=== PATIENT | male | born 1955 | race African-American/Black ===

== ENCOUNTER 2019-04-17 09:31 | Inpatient (IN) | payer OTHER | END 2019-04-19 08:44 | disposition short-term general hospital (02) | LOC: JER 09:31 → JERBED 12:12 → J4W 20:33 ==

== ENCOUNTER 2020-06-05 07:51 | Inpatient (IN) | payer OTHER ==
[2020-06-05] MEDS ORDERED: methylPREDNISolone NA SUCC 125 MG/2 ML VIAL ONE (07:57)
[2020-06-05] MEDS ORDERED: methylPREDNISolone NA SUCC 125 MG/2 ML VIAL IVPB ONE (08:04)
--- NOTE | 2020-06-05 08:09 | PDOC ---
History of Present Illness - General Chief Complaint: Tongue Swelling Stated Complaint: TONGUE SWOLLEN Time Seen by Provider: 06/05/20 08:02 History Source: Patient Exam Limitations: No Limitations - History of Present Illness Initial Comments: 06/05/20 08:08 Vlad Nowak is a 65M with PMH ACS s/p 4x stenting, metastatic colon CA s/p resection, L femoral arterial bypass, HTN, HLD, NIDDM, presenting here with second time swelling of the tongue. This morning patient awoke with severe swelling of the tongue that prevents him from speaking clearly, but denies any difficulty with breathing. Denies prodromal symptoms, F/C, N/V/C/D, chest pain, SOB, abd pain, urinary sx, diarrhe a. Had one episode of this 3 weeks ago, likely 2/2 Ramipril usage, has been taking for 15 years but has not discontinued use after first episode of angioedema. Currently has tongue swelling and difficulty speaking but otherwise says he is feeling fine. Allergy to PCN, unknown reaction, but takes daily amoxicillin for 1 year without reaction after skin graft. Non-smoking for last 6 years. Denies alcohol/drug use. PSH includes cholecystectomy, colon resection, femoral bypass with skin grafting Past History - Medical History Allergies/Adverse Reactions: Allergies Allergy/AdvReac Type Severity Reaction Status Date / Time Penicillins Allergy Unknown Verified 04/17/19 09:34 Home Medications: Ambulatory Orders Amlodipine Besylate [Norvasc -] 10 mg PO DAILY 05/29/12 metFORMIN HCL [Glucophage] 1,000 mg PO BID 01/03/13 Aspirin [ASA -] 81 mg PO DAILY 11/27/13 Atorvastatin Ca [Lipitor] 40 mg PO HS 11/27/13 Carvedilol [Coreg -] 12.5 mg PO BID 11/27/13 Ramipril 10 mg PO BID 11/27/13 Sennosides [Senna] 8.6 mg PO DAILY PRN 11/27/13 Sitagliptin Phosphate [Januvia] 100 mg PO DAILY 11/27/13 Dicloxacillin Sodium 500 mg PO BID 06/05/20 Ergocalciferol [Vitamin D2] 50,000 unit PO MONTHLY 06/05/20 Pregabalin [Lyrica] 200 mg PO BID 06/05/20 Regorafenib [Stivarga] 40 mg PO DAILY 06/05/20 COPD: No Diabetes: Yes HTN: Yes Hypercholesterolemia: Yes - Psycho-Social/Smoking History Smoking Status: Yes Smoking History: Current every day smoker Number of Cigarettes Smoked Daily: 40 'Breaking Loose' booklet given: 04/17/19 Review of Systems - Review of Systems Able to Perform ROS?: Yes Constitutional: No: Symptoms Reported HEENTM: Yes: Mouth Swelling Respiratory: No: Cough, Orthopnea, Shortness of Breath, SOB at Rest, Stridor, Wheezing Cardiac (ROS): No: Chest Pain, Edema, Irregular Heart Rate, Lightheadedness, Palpitations, Syncope ABD/GI: No: Constipated, Diarrhea, Nausea, Poor Appetite, Poor Fluid Intake, Vomiting : No: Symptoms Reported Musculoskeletal: No: Symptoms Reported Integumentary: No: Symptoms Reported Neurological: No: Symptoms reported Endocrine: No: Symptoms Reported All Other Systems: Reviewed and Negative *Physical Exam - Physical Exam General Appearance: Yes: Nourished, Appropriately Dressed, Obese, Other (resting comfortably in bed, breathing without issues, speaking in full sentences, talking on the phone) HEENT: positive: EOMI, ANTHONY, Symmetrical, Muffled/Hoarse voice, Other (diffusely enlarged tongue with R>L swelling, completely unable to visualize back of throat, no stridor noted, non-tender). negative: Normal ENT Inspection, Normal Voice, Scleral Icterus (R), Scleral Icterus (L) Neck: positive: Trachea midline, Normal Thyroid, Supple. negative: Tender, Rigid, Lymphadenopathy (R), Lymphadenopathy (L), Tender lateral, Tender midline Respiratory/Chest: positive: Lungs Clear, Normal Breath Sounds. negative: Chest Tender, Respiratory Distress, Accessory Muscle Use, Labored Respiration, Crackles, Rales, Rhonchi, Stridor, Wheezing Cardiovascular: positive: Regular Rhythm, Regular Rate. negative: Murmur Gastrointestinal/Abdominal: positive: Normal Bowel Sounds, Flat, Soft. negative: Tender, Organomegaly, Guarding, Rebound, Hernia Musculoskeletal: positive: Normal Inspection. negative: CVA Tenderness, Decreased Range of Motion Extremity: positive: Normal Capillary Refill, Normal Inspection, Normal Range of Motion. negative: Tender, Cyanosis, Swelling, Calf Tenderness, Erythema Integumentary: positive: Normal Color, Dry, Warm Neurologic: positive: Fully Oriented, Alert, Normal Mood/Affect, Normal Response ED Treatment Course - LABORATORY CBC & Chemistry Diagram: 06/05/20 08:10 06/05/20 08:10 - RADIOLOGY Radiology Studies Ordered: Category Date Time Status CHEST X-RAY PORTABLE* [RAD] Stat Radiology 06/05/20 08:03 Ordered - Medications Given in the ED: ED Medications Discontinued Medications Generic Name Dose Route Start Last Admin Trade Name Freq PRN Reason Stop Dose Admin Methylprednisolone Sodium Succinate 125 mg 06/05/20 08:04 06/05/20 08:05 Solu-Medrol - IVPB 06/05/20 08:05 125 mg ONCE ONE Administration Medical Decision Making - Medical Decision Making 06/05/20 08:35 Patient has PMH HTN, HLD, DM, ACS s/p stenting, colon CA, ? PCN allergy on chronic amoxicillin, now here for angioedema of the mouth likely 2/2 ramipril use. Patient has severe tongue swelling but is not having any airway compromise at this time. Keeping close on on patient airway status, on tele monitor. Anesthesia notified about possible awake endoscopic intubation if it becomes necessary. Otherwise VSS and in NAD. Given Solu-Medrol in ED and Benadryl by EMS. Ordering CMP/CBC/CP/Coags/ECG/CXR for evaluation, will need admission for fu rther monitoring and discharge planning. ECG shows NSR with incomplete RBBB and LAFB, QTc 497, no LYNDSEY/D or TWI. Labs notable for: - CBC WNL - AP 641 - BNP 342 - CP WNL - BMP WNL - Coags WNL 06/05/20 08:53 Patient speaking more clearly now, mildly improved. Consulting ICU given severity of airway swelling. 06/05/20 09:14 Discussed case with ICU resident, will come down to evaluate. Patient reports that he is being evaluated for mets to chest. CXR shows large heart and possible retrocardiac infiltrate, will need f/u but not affecting current angioedema. 06/05/20 10:13 Patient doing better, speech more clear. Patient seen by ICU team, accepted for ICU admission. Covid-19 swab obtained. Discharge - Discharge Information Problems reviewed: Yes Clinical Impression/Diagnosis: Angioedema Qualifiers: Encounter type: initial encounter Qualified Code(s): T78.3XXA - Angioneurotic edema, initial encounter Condition: Guarded - Admission Yes - Follow up/Referral - Patient Discharge Instructions - Post Discharge Activity
[2020-06-05 08:29] LABS: BASO % 0.4 % (0-2.0); EOS % 2.8 % (0-4.5); HEMATOCRIT 39.5 % (35.4-49); HEMOGLOBIN 12.6 GM/dL (11.7-16.9); LYMPH % 7.2 % (8-40); MCH 26.2 pg (25.7-33.7); MCHC 31.8 g/dl (32.0-35.9); MEAN CELL VOLUME 82.2 fl (80-96); MEAN PLT VOLUME 8.4 fl (7.5-11.1); MONO % 7.9 % (3.8-10.2); NEUT % 81.7 % (42.8-82.8); PLATELET COUNT 173 K/MM3 (134-434); RBC 4.81 M/mm3 (4.00-5.60); WHITE BLOOD COUNT 9.2 K/mm3 (4.0-10.0)
[2020-06-05 08:35] LABS: INR 1.13 (0.83-1.09); PROTHROMBIN TIME (PATIENT) 13.4 SEC (9.7-13.0)
--- NOTE | 2020-06-05 08:35 | PDOC ---
Attending Attestation - Resident Resident Name: Jadyn Escobar - ED Attending Attestation I have performed the following: I have examined & evaluated the patient, The case was reviewed & discussed with the resident, I agree w/resident's findings & plan, Exceptions are as noted - HPI HPI: 06/05/20 09:07 65 years old with past medical history significant for CAD status post 4 stents, metastatic colon cancer status post resection, left arterial bypass, hypertension hyperlipidemia [id number] diabetes on JAMILA inhibitor presents to the emergency department angioedema starting several hours ago gradually worsening tongue swelling difficulty speaking but no difficulty breathing not in extremis. Symptoms are severe persistent constant gradually worsening no alleviating factors no recent fever chills chest pain shortness of breath - Physicial Exam PE: 06/05/20 09:13 Vitals: Triage Vital signs reviewed General Appearance: No acute distress, well nourished well developed, Head: Atraumatic, Throat: Significant tongue swelling swelling under tongue, controlling secretions Neck: No stridor Cardiac: Regular rate and rhythym, Lungs: Clear to auscultation bilateral, good air movement bilaterally, Abdomen: Soft, non distended, normal bowel sounds, non tender to palpation Extremities: Full range of motion to all extremities, no cyanosis, clubbing, or edema Skin: Warm and dry, no rashes or lesions, no rash, no petechiae Psych: Normal mood, normal affect - Critical Care Time Total Critical Care Time: 65 Critical Care Statement: The care of this patient involved high complexity decision making to prevent further life threatening deterioration of the patient's condition and/or to evaluate & treat vital organ system(s) failure or risk of failure. - Medical Decision Making 06/05/20 09:18 65 years old with past medical history significant for CAD status post 4 stents, metastatic colon cancer status post resection, left arterial bypass, hypertension hyperlipidemia [id number] diabetes on JAMILA inhibitor presents to the emergency department angioedema Patient brought in by EMS for angioedema given 50 Benadryl IV in the field upon arrival patient able to speak slightly garbled secondary to enlarged tongue but not in extremis tolerating secretions IV Solu-Medrol IV Pepcid giving Patient with q 10-minute reassessments x 60 min Reevaluation 9 AM patient's tongue swelling slightly improving not worsening Case discussed with anesthesiology in case of deterioration and need for fiberoptic and the patient. No indication for the patient at this time. We will continue current management ICU for admission Heart Score/ECG Review - ECG Impressions Comment:: 06/05/20 09 EKG performed at 8:21 AM demonstrates normal sinus rhythm incomplete right bundle branch block no ST elevations Interpreted by me Discharge - Discharge Information Problems reviewed: Yes Clinical Impression/Diagnosis: Angioedema Qualifiers: Encounter type: initial encounter Qualified Code(s): T78.3XXA - Angioneurotic edema, initial encounter Condition: Guarded - Follow up/Referral - Patient Discharge Instructions - Post Discharge Activity
[2020-06-05 08:37] LABS: ACTIVATED PTT 33.4 SECONDS (25.2-36.5)
[2020-06-05 08:43] VITALS: BMI 41.9
[2020-06-05 08:48] LABS: ALBUMIN 2.7 g/dl (3.4-5.0); ALK PHOS 641 U/L (45-117); ANION GAP 10 MMOL/L (8-16); BILIRUBIN,TOTAL 1.2 mg/dL (0.2-1); BLOOD UREA NITROGEN 15.8 mg/dL (7-18); CHLORIDE 106 mmol/L (98-107); CO2 22 mmol/L (21-32); CREATININE 0.8 mg/dL (0.55-1.3); GLUCOSE,RANDOM 183 mg/dL (74-106); MAGNESIUM 1.7 mg/dL (1.8-2.4); N-TERMINAL BNP 342.9 pg/ml (5-125); POTASSIUM 4.6 mmol/L (3.5-5.1); SGOT/AST 58 U/L (15-37); SGPT/ALT 59 U/L (13-61); SODIUM 137 mmol/L (136-145); TOT PROT 7.3 g/dl (6.4-8.2)
[2020-06-05] MEDS ORDERED: TRANEXAMIC ACID 1000 MG/10 ML VIAL IVPUSH ONE (08:50)
--- NOTE | 2020-06-05 11:59 | CONSULT ---
Consultation: REQUESTING PROVIDER: ED Dr. Coon CONSULT REQUEST: We have been asked to medically evaluate this patient for angioedema secondary to medication use. HISTORY OF PRESENT ILLNESS: 65 y.o. M PMHx ACS s/p 4x stents, metastatic colon cancer s/p resection, L femoral artery bypass, HTN, HLD, DM, presenting with a second episode of tongue swelling. Patient states he woke up this morning at 3 am and noticed his tongue was swollen so he decided to call EMS. At the time he had decreased ability to speak but no respiratory compromise was noted. Pt. stated he had an episode 3 weeks ago that was not as severe and located predominantly on the L side of his tongue. Patient denies SOB, difficulty breathing, N/V/D. He takes ramapril daily and has been doing so for 15 years. Patient also takes dicloxacillin daily for the past year as per his vascular surgeon and has had penicillin allergy since childhood where he gets itchy. REVIEW OF SYSTEMS: CONSTITUTIONAL: Absent: fever, chills, diaphoresis, generalized weakness, malaise, loss of appetite, weight change HEENT: difficulty swallowing, mouth swelling Absent: rhinorrhea, nasal congestion, throat pain, throat swelling, ear pain, eye pain, visual changes CARDIOVASCULAR: Absent: chest pain, syncope, palpitations, irregular heart rate, lightheadedness, peripheral edema RESPIRATORY: Absent: cough, shortness of breath, dyspnea with exertion, orthopnea, wheezing, stridor, hemoptysis GASTROINTESTINAL: Absent: abdominal pain, abdominal distension, nausea, vomiting, diarrhea, constipation, melena, hematochezia GENITOURINARY: Absent: dysuria, frequency, urgency, hesitancy, hematuria, flank pain, genital pain MUSCULOSKELETAL: Absent: myalgia, arthralgia, joint swelling, back pain, neck pain SKIN: Absent: rash, itching, pallor HEMATOLOGIC/IMMUNOLOGIC: Absent: easy bleeding, easy bruising, lymphadenopathy, frequent infections ENDOCRINE: Absent: unexplained weight gain, unexplained weight loss, heat intolerance, cold intolerance NEUROLOGIC: Absent: headache, focal weakness or paresthesias, dizziness, unsteady gait, seizure, mental status changes, bladder or bowel incontinence PSYCHIATRIC: Absent: anxiety, depression, suicidal or homicidal ideation, hallucinations. PHYSICAL EXAMINATION Vital Signs - 24 hr 06/05/20 06/05/20 06/05/20 07:51 08:30 08:47 Temperature 98.7 F Pulse Rate 95 H Pulse Rate [ 93 H Right Radial] Respiratory 26 H 26 H Rate Blood Pressure 152/96 Blood Pressure 135/78 [Left Arm] O2 Sat by Pulse 97 98 98 Oximetry (%) 06/05/20 06/05/20 06/05/20 09:30 10:30 11:23 Temperature Pulse Rate Pulse Rate [ 93 H 94 H 99 H Right Radial] Respiratory 24 H 26 H 29 H Rate Blood Pressure Blood Pressure 151/78 153/87 165/90 [Left Arm] O2 Sat by Pulse 99 98 99 Oximetry (%) GENERAL: Awake, alert, and fully oriented, in no acute distress. HEAD: Normal with no signs of trauma. EYES: Pupils equal, round and reactive to light, extraocular movements intact, sclera anicteric, conjunctiva EARS, NOSE, THROAT: Ears normal, nares patent, oropharynx edematous without exudates. Moist mucous membranes. NECK: No JVD, or masses. LUNGS: Breath sounds equal, clear to auscultation bilaterally. No wheezes, and no crackles. No accessory muscle use. HEART: Regular rate and rhythm, normal S1 and S2 without murmur, rub or gallop. ABDOMEN: Soft, nontender, not distended, normoactive bowel sounds, no guarding, no rebound, no masses. MUSCULOSKELETAL: Normal range of motion at all joints. No bony deformities or tenderness. No CVA tenderness. UPPER EXTREMITIES: 2+ pulses, warm, well-perfused. No cyanosis. No clubbing. No peripheral edema. LOWER EXTREMITIES: 2+ pulses, warm, well-perfused. No calf tenderness. No peripheral edema. NEUROLOGICAL: Cranial nerves II-XII intact. Normal speech. PSYCHIATRIC: Cooperative. Good eye contact. Appropriate mood and affect. SKIN: Warm, dry, normal turgor, no rashes or lesions noted. Laboratory Results - last 24 hr 06/05/20 06/05/20 06/05/20 08:10 08:10 08:10 WBC 9.2 RBC 4.81 Hgb 12.6 Hct 39.5 D MCV 82.2 MCH 26.2 MCHC 31.8 L RDW 19.0 H Plt Count 173 D MPV 8.4 D Absolute Neuts (auto) 7.5 Neutrophils % 81.7 D Lymphocytes % 7.2 L D Monocytes % 7.9 Eosinophils % 2.8 D Basophils % 0.4 Nucleated RBC % 0 PT with INR 13.40 H INR 1.13 H PTT (Actin FS) 33.4 Sodium 137 Potassium 4.6 Chloride 106 Carbon Dioxide 22 Anion Gap 10 BUN 15.8 Creatinine 0.8 Est GFR (CKD-EPI)AfAm 107.89 Est GFR (CKD-EPI)NonAf 93.09 Random Glucose 183 H Calcium 9.0 Magnesium 1.7 L Total Bilirubin 1.2 H AST 58 H ALT 59 Alkaline Phosphatase 641 H Creatine Kinase 51 Troponin I < 0.02 B-Natriuretic Peptide 342.9 H Total Protein 7.3 Albumin 2.7 L ASSESSMENT/PLAN: 65 y.o. M PMHx ACS s/p 4x stents, metastatic colon cancer s/p resection, L femoral artery bypass, HTN, HLD, DM, presenting with a second episode of tongue swelling, periorbital edema, oropharyngeal swelling likely secondary to angioedema from JAMILA-I use vs. penicillin allergy vs. other drug induced reaction. In the setting of extensive soft tissue swelling with mild to moderate da-orbital swelling concern for airway compromise remains high therefore ICU monitoring is recommended for 24hrs to prevent and monitor further worsening of current condition. However in light of improving symptoms and responsiveness to steroids/ will continue current management of the patient and will plan to downgrade in the morning once improvement # Neuro - AAO x 3 - Patient stable and cooperative - Appropriate mood and affect # Cardio - Hold ramapril - Pulse 94, BP 165/90 - Maintain MAP >65; If low can start on IVF # Pulm - Patient in no acute distress - RR 29, 99% on room air - Anticipated difficult intubation, anesthesia aware - if symptoms worsen can consider Benadryl 25mg PO PRN - s/p Solumedrol 125mg in ED - Decadron 10 mg Q6H - Benadryl 25mg Q6H - Can consider IV steroids in the morning - Monitor patient closely for airway compromise - If airway compromise is imminent may need to intubate with the help of anesthesia - Aspiration precautions - Speech and swallow evaluation # ID - Covid positive in January - Covid PCR pending - Isolation precautions # Renal - BUN 15.8, Cr 0.8 - Continue to monitor lytes # FEN - NPO due to aspiration risk - Hold IVF # DVT - Lovenox 40mg SQ BID Dispo: We will continue to follow the patient. Thank you for this consultative opportunity. Problem List - Problems (1) Angioedema Problems reviewed: Yes Code(s): T78.3XXA - ANGIONEUROTIC EDEMA, INITIAL ENCOUNTER Qualifiers: Encounter type: initial encounter Qualified Code(s): T78.3XXA - Angioneurotic edema, initial encounter Visit type - Medication Review Med list reviewed for High Risk Meds patients 65 and older: Yes - Emergency Visit Emergency Visit: Yes ED Registration Date: 06/05/20 Care time: The patient presented to the Emergency Department on the above date and was hospitalized for further evaluation of their emergent condition. - New Patient This patient is new to me today: Yes Date on this admission: 06/05/20 - Critical Care Critical Care patient: Yes Total Critical Care Time (in minutes): 45 Critical Care Statement: The care of this patient involved high complexity decision making to prevent further life threatening deterioration of the patient's condition and/or to evaluate & treat vital organ system(s) failure or risk of failure. ATTENDING PHYSICIAN STATEMENT I saw and evaluated the patient. I reviewed the resident's note and discussed the case with the resident. I agree with the resident's findings and plan as documented. SUBJECTIVE: OBJECTIVE: ASSESSMENT AND PLAN:
[2020-06-05] MEDS ORDERED: MUPIROCIN 2% TOPICAL OINTMENT FOR DECOLONIZATION NS SCH (12:30)
[2020-06-05] MEDS ORDERED: MAGNESIUM SULF 50% (8.12 MEQ/2 ML-1 GM VIAL) IVPB ONE (13:09)
[2020-06-05] MEDS ORDERED: MAGNESIUM 1GM/D5W - 1 GM/100 ML IVPB IVPB ONE (13:15)
[2020-06-05] MEDS ORDERED: methylPREDNISolone NA SUCC 40 MG/1 ML VIAL IVPUSH SCH (14:00)
[2020-06-05] MEDS: ENOXAPARIN NA (PORCINE) 40 MG/0.4 ML DISP.SYRIN SQ SCH (14:37)
[2020-06-05] MEDS: MUPIROCIN 2% TOPICAL OINTMENT FOR DECOLONIZATION NS SCH ×2 (14:43→21:34)
--- NOTE | 2020-06-05 15:00 | PN ---
Teaching Attending Note Name of Resident: Moses Castellano ATTENDING PHYSICIAN STATEMENT I saw and evaluated the patient. I reviewed the resident's note and discussed the case with the resident. I agree with the resident's findings and plan as documented. SUBJECTIVE: Pt seen and examined in the ICU. States breathing and voice better. Still with tongue swelling and dysarthria. OBJECTIVE: Vital Signs Period Temp Pulse Resp BP Sys/Ibanez Pulse Ox Last 24 Hr 98.5 F-98.7 F 93-99 24-29 135-165/77-96 97-99 Intake & Output 06/02/20 06/03/20 06/04/20 06/05/20 23:59 23:59 23:59 23:59 Weight 128.82 kg Gen: NAD at rest HEENT: tongue, frenulum edema Neck: no stridor Heart: RRR Lung: decreased breath sounds at the bases Abd: soft, nontender Ext: no edema CBC, BMP 06/05/20 08:10 06/05/20 08:10 Active Medications Chlorhexidine Gluconate (Hibiclens For Decolonization -) 1 applic TP HS [facility] Dexamethasone Sodium Phosphate (Decadron Injection -) 10 mg IVPUSH Q6H-IV EMM[facility] Enoxaparin Sodium (Lovenox -) 40 mg SQ DAILY E[facility] Last Admin: 06/05/20 14:37 Dose: 40 mg Documented by: Insulin Aspart (Novolog Vial Sliding Scale -) 1 vial SQ ACHS [facility]; Protocol Mupirocin (Bactroban Ointment (For Decolonization) -) 1 applic NS BID [facility] Stop: 06/10/20 12:29 Last Admin: 06/05/20 14:43 Dose: Not Given Documented by: ASSESSMENT AND PLAN: Angioedema likely from JAMILA-I CAD Metastatic Colon Ca PAD HTN DM Hyperlipidemia - IV decadron - antihistamines - NPO - O2 to keep SpO2 >90% - ICU for airway monitoring
[2020-06-05] MEDS ORDERED: SENNOSIDES 8.6MG TABLET (FP) PO PRN (15:57)
[2020-06-05] MEDS: DEXAMETHASONE SOD PHOSPHATE 10 MG/1 ML VIAL IVPUSH SCH ×2 (16:10→21:33)
[2020-06-05] MEDS: INSULIN SLIDING SCALE (NOVOLOG) 1 VIAL SQ SCH ×2 (17:41→21:34)
[2020-06-05] MEDS ORDERED: PT OWN MED DRAWER 7, Y5N ONE (21:11)
[2020-06-05] MEDS: CARVEDILOL 12.5 MG TABLET (FP) PO SCH (21:33)
[2020-06-05] MEDS: PREGABALIN 100 MG CAPSULE PO SCH (21:33)
[2020-06-05] MEDS ORDERED: ATORVASTATIN CA 40 MG TABLET (FP) PO SCH (22:00)
[2020-06-05] MEDS ORDERED: CHLORHEXIDINE GLUCONATE 4% CLEANSER FOR DECOLONIZATION TP SCH ×2 (22:00)
[2020-06-06] MEDS: DEXAMETHASONE SOD PHOSPHATE 10 MG/1 ML VIAL IVPUSH SCH ×2 (02:02→09:12)
[2020-06-06 06:35] LABS: HEMOGLOBIN 13.3 GM/dL (11.7-16.9); MCH 26.4 pg (25.7-33.7); MEAN PLT VOLUME 8.5 fl (7.5-11.1); PLATELET COUNT 184 K/MM3 (134-434)
[2020-06-06 06:36] LABS: MONO % 1.1 % (3.8-10.2)
[2020-06-06 06:40] LABS: HEMATOCRIT 41.1 % (35.4-49); LYMPH % 6.6 % (8-40); MCHC 32.4 g/dl (32.0-35.9); MEAN CELL VOLUME 81.3 fl (80-96); NEUT % 92.3 % (42.8-82.8); RBC 5.05 M/mm3 (4.00-5.60); RDW 18.9 % (11.9-15.9)
[2020-06-06] MEDS: INSULIN SLIDING SCALE (NOVOLOG) 1 VIAL SQ SCH ×2 (06:50→11:49)
[2020-06-06 06:59] VITALS: TEMP 97.6
[2020-06-06 07:12] LABS: ALBUMIN 2.6 g/dl (3.4-5.0); BILIRUBIN,TOTAL 1.1 mg/dL (0.2-1); BLOOD UREA NITROGEN 12.3 mg/dL (7-18); CALCIUM 8.8 mg/dL (8.5-10.1); CREATININE 0.6 mg/dL (0.55-1.3); MAGNESIUM 1.9 mg/dL (1.8-2.4); PHOSPHOROUS 2.8 mg/dL (2.5-4.9); POTASSIUM 4.4 mmol/L (3.5-5.1); TOT PROT 7.2 g/dl (6.4-8.2)
[2020-06-06] MEDS ORDERED: MAGNESIUM SULF 50% (8.12 MEQ/2 ML-1 GM VIAL) IVPB ONE (08:09)
[2020-06-06] MEDS ORDERED: MAGNESIUM 1GM/D5W - 1 GM/100 ML IVPB IVPB ONE (08:45)
[2020-06-06] MEDS: MUPIROCIN 2% TOPICAL OINTMENT FOR DECOLONIZATION NS SCH (09:13)
[2020-06-06] MEDS: ENOXAPARIN NA (PORCINE) 40 MG/0.4 ML DISP.SYRIN SQ SCH (09:13)
[2020-06-06] MEDS: CARVEDILOL 12.5 MG TABLET (FP) PO SCH (09:13)
[2020-06-06] MEDS: PREGABALIN 100 MG CAPSULE PO SCH (09:13)
[2020-06-06 09:21] VITALS: BP 123/75; PULSE 87
[2020-06-06] MEDS ORDERED: ASPIRIN 81 MG CHEWABLE TABLETS PO SCH (10:00)
[2020-06-06] MEDS ORDERED: ERGOCALCIFEROL (VIT D2) 50,000 UNIT (1.25 MG) CAPSULE PO SCH (10:00)
[2020-06-06] MEDS ORDERED: amLODIPine BESYLATE 10 MG TABLET (FP) PO SCH (10:00)
[2020-06-06] MEDS ORDERED: REGORAFENIB 40 MG PO SCH (10:00)
[2020-06-06] MEDS ORDERED: PANTOPRAZOLE 40 MG TABLET PO SCH (10:00)
--- NOTE | 2020-06-06 10:01 | EKG ---
Test Reason : Blood Pressure : / mmHG Vent. Rate : 095 BPM Atrial Rate : 095 BPM P-R Int : 158 ms QRS Dur : 108 ms QT Int : 396 ms P-R-T Axes : 053 -50 014 degrees QTc Int : 497 ms NORMAL SINUS RHYTHM INCOMPLETE RIGHT BUNDLE BRANCH BLOCK LEFT ANTERIOR FASCICULAR BLOCK JUNCTIONAL ST DEPRESSION, PROBABLY NORMAL ABNORMAL ECG WHEN COMPARED WITH ECG OF 17-APR-2019 16:54, NO SIGNIFICANT CHANGE WAS FOUND Confirmed by Zoe Choi ([id number]) on 06/06/2020 10:00:39 AM Referred By: Confirmed By:Zoe Choi
[2020-06-06 10:11] LABS: ANISOCYTOSIS 0; MACROCYTOSIS 0; PLATELET ESTIMATE NORMAL
--- NOTE | 2020-06-06 10:20 | CONSULT ---
Admitting History and Physical - Admission History of Present Illness: 65 y.o. M PMHx ACS s/p 4x stents, metastatic colon cancer s/p resection, L femoral artery bypass, HTN, HLD, DM, presenting with a second episode of tongue swelling, periorbital edema, oropharyngeal swelling likely secondary to angioedema from JAMILA-I use vs. penicillin allergy vs. other drug induced reaction Per nursing note No mucosa edema noted, no difficulty swallowing. Reg diet/thin liquid ordered Selected Entries 06/05/20 06/06/20 06/06/20 10:00 00:00 02:00 Breakfast NPO Temperature 98.4 F Blood Pressure 140/75 151/80 06/06/20 06/06/20 06/06/20 04:00 06:00 08:00 Breakfast Temperature 97.6 F Blood Pressure 139/75 158/80 123/75 Laboratory Tests 06/05/20 06/06/20 11:25 06:00 WBC 9.0 COVID-19 ([facility]) Pending History Source: Patient Limitations to Obtaining History: No Limitations - Past Medical History Cardiovascular: Yes: CAD, HTN, Hyperlipdemia, Other (PAD s/p bypass) Gastrointestinal: Yes: Other (Colon cancer) Heme/Onc: Yes: Anemia, Cancer, Current Chemotherapy Endocrine: Yes: Diabetes Mellitus - Smoking History Smoking history: Current every day smoker Have you smoked in the past 12 months: No Aproximately how many cigarettes per day: 40 If you are a former smoker, when did you quit?: 6 yrs ago - Alcohol/Substance Use Hx Alcohol Use: No History - Admission Reason For Visit: ANGIOEDEMA - Diagnostics X-ray: Report Reviewed - General Mental Status: Alert and Oriented, Awake and Alert, Able to Follow Commands Attention: Intact Ability to Follow Directions: Excellent Head/Neck Control: WFL - Hearing Hearing: Normal Hearing Aide: No Speech Evaluation - Communication Primary Language: AZERI Communication: Yes: Within Normal Limits - Speech Production Able to Make Needs Known: Yes: WNL Intelligibility: Yes: WNL - Speech Characteristics Voice Loudness: Normal Voice Pitch: Yes: Normal Voice Phonatory-based Quality: Yes: Normal Speech Pattern: Normal Speech Clarity: < 100% Nasal Resonance: Normal Articulation: Yes: Precise - Language/Auditory Comprehension Follows: Yes: 2 Stage Simple Commands - Language/Verbal Expression Able to Respond to Simple Queries: Yes: WNL Able to Communicate Wants and Needs: Yes: WNL Functional Communication Status: Yes: WNL - Memory/Perception termite treater Memory: Yes: WNL Short Term Memory: Yes: WNL - Swallow Evaluation/Bedside Assessment Current Nutritional Intake: Regular, Thin Liquids Oral Secretions: Yes: WFL Dentition: Yes: Adequate Facial Symmetry at Rest: Symmetrical Facial Symmetry on Retraction: Symmetrical Facial Movement: Controlled Sensation: Normal Against Resistance Opening: Normal Against Resistance Closing: Normal Pucker Lips: Normal Smile: Normal Lingual Movement: Normal, Symmetric Lingual Speed of Movement: Normal Lingual Movement Strgth Against Opposition: Normal Lingual Movement Characteristics: Normal Laryngeal Elevation: WFL Rate of Intake: WFL Bolus Size: WFL Labial Seal: WFL Chewing: WFL Oral Prep Time: WFL A-P Transit: WFL Pocketing: None Timing of Swallow: WFL Coughing/Throat Clear: No Change in Voice: No Recommendations - Speech Evaluation, Impression/Plan Impression: Speech/swallowing back to baseline - Dysphagia Impressions/Plan Swallowing Skills: WF Dysphagia Impressions: No Impairment *Silent aspiration: cannot be R/O at bedside - Recommendations Diet Consistency: Regular Medication Administration: Whole with water Liquids: Thin Liquids
--- NOTE | 2020-06-06 10:50 | DS ---
Physical Exam: SUBJECTIVE: Patient seen and examined today, is able to speak in full sentences, has no excessive drooling, and is passed a bedside swallow study. Denies any difficulty swallowing or breathing, CP, SoB, VICKERS or changes in vision. OBJECTIVE: Vital Signs Period Temp Pulse Resp BP Sys/Ibanez Pulse Ox Last 24 Hr 97.6 F-98.4 F 87-110 11-29 123-165/61-90 92-100 PHYSICAL EXAM GENERAL: The patient is awake, alert, and fully oriented, in no acute distress. HEAD: Normal with no signs of trauma. EYES: PERRL, extraocular movements intact, sclera anicteric, conjunctiva clear. ENT: Ears normal, nares patent, oropharynx clear without exudates, moist mucous membranes. NECK: Trachea midline, full range of motion, supple. LUNGS: Breath sounds equal, clear to auscultation bilaterally, no wheezes, no crackles, no accessory muscle use. HEART: Regular rate and rhythm, S1, S2 without murmur, rub or gallop. ABDOMEN: Soft, nontender, nondistended, normoactive bowel sounds, no guarding, no rebound, no hepatosplenomegaly, no masses. EXTREMITIES: 2+ pulses, warm, well-perfused, no edema. NEUROLOGICAL: Cranial nerves II through XII grossly intact. Normal speech, gait not observed. PSYCH: Normal mood, normal affect. SKIN: Warm, dry, normal turgor, no rashes or lesions noted. LABS Laboratory Results - last 24 hr 06/05/20 06/05/20 06/06/20 17:25 21:31 06:00 WBC 9.0 RBC 5.05 Hgb 13.3 Hct 41.1 MCV 81.3 MCH 26.4 MCHC 32.4 RDW 18.9 H Plt Count 184 MPV 8.5 Absolute Neuts (auto) 8.3 H Neutrophils % 92.3 H Neutrophils % (Manual) 93.0 H D Band Neutrophils % 0.0 Lymphocytes % 6.6 L Lymphocytes % (Manual) 6.0 L D Monocytes % 1.1 L D Monocytes % (Manual) 1 L D Eosinophils % 0.0 D Eosinophils % (Manual) 0.0 Basophils % 0.0 Basophils % (Manual) 0.0 Myelocytes % (Man) 0 Promyelocytes % (Man) 0 Blast Cells % (Manual) 0 Nucleated RBC % 0 Metamyelocytes 0 Hypochromia 0 Platelet Estimate Normal Polychromasia 0 Poikilocytosis 0 Anisocytosis 0 Microcytosis 0 Macrocytosis 0 Sodium Potassium Chloride Carbon Dioxide Anion Gap BUN Creatinine Est GFR (CKD-EPI)AfAm Est GFR (CKD-EPI)NonAf POC Glucometer 198 198 Random Glucose Hemoglobin A1c % Calcium Phosphorus Magnesium Total Bilirubin AST ALT Alkaline Phosphatase Total Protein Albumin TSH 06/06/20 06/06/20 06/06/20 06:00 06:00 06:32 WBC RBC Hgb Hct MCV MCH MCHC RDW Plt Count MPV Absolute Neuts (auto) Neutrophils % Neutrophils % (Manual) Band Neutrophils % Lymphocytes % Lymphocytes % (Manual) Monocytes % Monocytes % (Manual) Eosinophils % Eosinophils % (Manual) Basophils % Basophils % (Manual) Myelocytes % (Man) Promyelocytes % (Man) Blast Cells % (Manual) Nucleated RBC % Metamyelocytes Hypochromia Platelet Estimate Polychromasia Poikilocytosis Anisocytosis Microcytosis Macrocytosis Sodium 139 Potassium 4.4 Chloride 106 Carbon Dioxide 23 Anion Gap 10 BUN 12.3 Creatinine 0.6 Est GFR (CKD-EPI)AfAm 121.43 Est GFR (CKD-EPI)NonAf 104.77 POC Glucometer 267 Random Glucose 229 H Hemoglobin A1c % 7.4 H Calcium 8.8 Phosphorus 2.8 Magnesium 1.9 Total Bilirubin 1.1 H AST 66 H ALT 72 H Alkaline Phosphatase 624 H Total Protein 7.2 Albumin 2.6 L TSH 0.25 L HOSPITAL COURSE: Date of Admission:06/05/20 Date of Discharge: 06/06/20 65 y.o. M PMHx ACS s/p 4x stents, metastatic colon cancer s/p resection, L femoral artery bypass, HTN, HLD, DM, presenting with a second episode of tongue swelling, periorbital edema, oropharyngeal swelling secondary to angioedema from JAMILA-I use (Ramapril). Ptn was admitted to the ICU due to concern for airway compromise and monitor further worsening of current condition. Patient was started on Decadron 10mg Q6 as well as Benadryl [id number]. Ptn symptoms gradually improved by morning and was able to pass a bedside swallow exam. Patient was informed of his new allergy to jamila-inhibitors, and told to avoid them in the future. Additionally Lipitor was held due to concerns that it was causing a mild transaminase and patient was advised to follow up with his PCP for LFTs. Patient is currently stable, saturating appropriately, has no difficulty breathing or swallowing, and ready for discharge to home. Minutes to complete discharge: 36 Discharge Summary Problems reviewed: Yes Reason For Visit: ANGIOEDEMA Current Active Problems Angioedema (Acute) Condition: Guarded - Instructions Diet, Activity, Other Instructions: You came into the hospital for swelling of your mouth. You were treated with steroids and benadryl to help your swelling. We believe that this is due to an allergy to your Ramipril. Please do NOT take any JAMILA-Inhibitors as you are allergic. You are now stable for discharge Medications: Please do NOT take Ramipril Please do NOT take Lipitor/Atorvastatin. Please speak with your primary care physician. You will need repeat liver function test. You may continue your additional home medications as prescribed. Please keep a log of your blood pressures for your primary care physicians FOLLOW UP Please follow up with your primary care physician , Dr. Melendez regarding your blood pressure. You will also need to repeat your thyroid function test in 6 weeks. If you have new, worsening, or concerning symptoms please return to the ED or call 911 . If you have swelling, decreased swallowing, change in voice , rash, please return to the ED Referrals: Noe Melendez MD, [Primary Care Provider] - 06/09/20 Disposition: HOME - Home Medications Comprehensive Discharge Medication List: Ambulatory Orders Amlodipine Besylate [Norvasc -] 10 mg PO DAILY 05/29/12 metFORMIN HCL [Glucophage] 1,000 mg PO BID 01/03/13 Aspirin [ASA -] 81 mg PO DAILY 11/27/13 Atorvastatin Ca [Lipitor] 40 mg PO HS 11/27/13 Carvedilol [Coreg -] 12.5 mg PO BID 11/27/13 Sennosides [Senna] 8.6 mg PO DAILY PRN 11/27/13 Sitagliptin Phosphate [Januvia] 100 mg PO DAILY 11/27/13 Dicloxacillin Sodium 500 mg PO BID 06/05/20 Ergocalciferol [Vitamin D2] 50,000 unit PO MONTHLY 06/05/20 Pregabalin [Lyrica] 200 mg PO BID 06/05/20 Regorafenib [Stivarga] 40 mg PO DAILY 06/05/20 This patient is new to me today: Yes Date on this admission: 06/06/20 Emergency Visit: No Critical Care patient: Yes Total Critical Care Time (in minutes): 36 Critical Care Statement: The care of this patient involved high complexity decision making to prevent further life threatening deterioration of the patient's condition and/or to evaluate & treat vital organ system(s) failure or risk of failure. - Discharge Referral Referred to [facility] No ATTENDING PHYSICIAN STATEMENT I saw and evaluated the patient. I reviewed the resident's note and discussed the case with the resident. I agree with the resident's findings and plan as documented. SUBJECTIVE: OBJECTIVE: ASSESSMENT AND PLAN:
--- NOTE | 2020-06-06 10:55 | DS ---
Physical Exam: SUBJECTIVE: Patient seen and examined OBJECTIVE: Vital Signs Period Temp Pulse Resp BP Sys/Ibanez Pulse Ox Last 24 Hr 97.6 F-98.4 F 87-110 11-29 123-165/61-90 92-100 PHYSICAL EXAM GENERAL: The patient is awake, alert, and fully oriented, in no acute distress. HEAD: Normal with no signs of trauma. EYES: PERRL, extraocular movements intact, sclera anicteric, conjunctiva clear. ENT: Ears normal, nares patent, oropharynx clear without exudates, moist mucous membranes. NECK: Trachea midline, full range of motion, supple. LUNGS: Breath sounds equal, clear to auscultation bilaterally, no wheezes, no crackles, no accessory muscle use. HEART: Regular rate and rhythm, S1, S2 without murmur, rub or gallop. ABDOMEN: Soft, nontender, nondistended, normoactive bowel sounds, no guarding, no rebound, no hepatosplenomegaly, no masses. EXTREMITIES: 2+ pulses, warm, well-perfused, no edema. NEUROLOGICAL: Cranial nerves II through XII grossly intact. Normal speech, gait not observed. PSYCH: Normal mood, normal affect. SKIN: Warm, dry, normal turgor, no rashes or lesions noted. LABS Laboratory Results - last 24 hr 06/05/20 06/05/20 06/06/20 17:25 21:31 06:00 WBC 9.0 RBC 5.05 Hgb 13.3 Hct 41.1 MCV 81.3 MCH 26.4 MCHC 32.4 RDW 18.9 H Plt Count 184 MPV 8.5 Absolute Neuts (auto) 8.3 H Neutrophils % 92.3 H Neutrophils % (Manual) 93.0 H D Band Neutrophils % 0.0 Lymphocytes % 6.6 L Lymphocytes % (Manual) 6.0 L D Monocytes % 1.1 L D Monocytes % (Manual) 1 L D Eosinophils % 0.0 D Eosinophils % (Manual) 0.0 Basophils % 0.0 Basophils % (Manual) 0.0 Myelocytes % (Man) 0 Promyelocytes % (Man) 0 Blast Cells % (Manual) 0 Nucleated RBC % 0 Metamyelocytes 0 Hypochromia 0 Platelet Estimate Normal Polychromasia 0 Poikilocytosis 0 Anisocytosis 0 Microcytosis 0 Macrocytosis 0 Sodium Potassium Chloride Carbon Dioxide Anion Gap BUN Creatinine Est GFR (CKD-EPI)AfAm Est GFR (CKD-EPI)NonAf POC Glucometer 198 198 Random Glucose Hemoglobin A1c % Calcium Phosphorus Magnesium Total Bilirubin AST ALT Alkaline Phosphatase Total Protein Albumin TSH 06/06/20 06/06/20 06/06/20 06:00 06:00 06:32 WBC RBC Hgb Hct MCV MCH MCHC RDW Plt Count MPV Absolute Neuts (auto) Neutrophils % Neutrophils % (Manual) Band Neutrophils % Lymphocytes % Lymphocytes % (Manual) Monocytes % Monocytes % (Manual) Eosinophils % Eosinophils % (Manual) Basophils % Basophils % (Manual) Myelocytes % (Man) Promyelocytes % (Man) Blast Cells % (Manual) Nucleated RBC % Metamyelocytes Hypochromia Platelet Estimate Polychromasia Poikilocytosis Anisocytosis Microcytosis Macrocytosis Sodium 139 Potassium 4.4 Chloride 106 Carbon Dioxide 23 Anion Gap 10 BUN 12.3 Creatinine 0.6 Est GFR (CKD-EPI)AfAm 121.43 Est GFR (CKD-EPI)NonAf 104.77 POC Glucometer 267 Random Glucose 229 H Hemoglobin A1c % 7.4 H Calcium 8.8 Phosphorus 2.8 Magnesium 1.9 Total Bilirubin 1.1 H AST 66 H ALT 72 H Alkaline Phosphatase 624 H Total Protein 7.2 Albumin 2.6 L TSH 0.25 L HOSPITAL COURSE: Date of Admission:06/05/20 Date of Discharge: 06/06/20 Discharge Summary Problems reviewed: Yes Reason For Visit: ANGIOEDEMA Current Active Problems Angioedema (Acute) Condition: Guarded - Instructions Diet, Activity, Other Instructions: You came into the hospital for swelling of your mouth. You were treated with steroids and benadryl to help your swelling. We believe that this is due to an allergy to your Ramipril. Please do NOT take any JAMILA-Inhibitors as you are allergic. You are now stable for discharge Medications: Please do NOT take Ramipril You may continue your additional home medications as prescribed. Please keep a log of your blood pressures for your primary care physicians FOLLOW UP Please follow up with your primary care physician , Dr. Melendez regarding your blood pressure If you have new, worsening, or concerning symptoms please return to the ED or call 911 . If you have swelling, decreased swallowing, change in voice , rash, please return to the ED Referrals: Noe Melendez MD, MD [Primary Care Provider] - 06/09/20 Disposition: HOME - Home Medications Comprehensive Discharge Medication List: Ambulatory Orders Amlodipine Besylate [Norvasc -] 10 mg PO DAILY 05/29/12 metFORMIN HCL [Glucophage] 1,000 mg PO BID 01/03/13 Aspirin [ASA -] 81 mg PO DAILY 11/27/13 Atorvastatin Ca [Lipitor] 40 mg PO HS 11/27/13 Carvedilol [Coreg -] 12.5 mg PO BID 11/27/13 Sennosides [Senna] 8.6 mg PO DAILY PRN 11/27/13 Sitagliptin Phosphate [Januvia] 100 mg PO DAILY 11/27/13 Dicloxacillin Sodium 500 mg PO BID 06/05/20 Ergocalciferol [Vitamin D2] 50,000 unit PO MONTHLY 06/05/20 Pregabalin [Lyrica] 200 mg PO BID 06/05/20 Regorafenib [Stivarga] 40 mg PO DAILY 06/05/20 ATTENDING PHYSICIAN STATEMENT I saw and evaluated the patient. I reviewed the resident's note and discussed the case with the resident. I agree with the resident's findings and plan as documented. SUBJECTIVE: OBJECTIVE: ASSESSMENT AND PLAN:
--- NOTE | 2020-06-06 12:19 | PN ---
Teaching Attending Note Name of Resident: Moses Lu ATTENDING PHYSICIAN STATEMENT I saw and evaluated the patient. I reviewed the resident's note and discussed the case with the resident. I agree with the resident's findings and plan as documented. SUBJECTIVE: Pt seen and examined in the ICU. States breathing, voice, swallowing is back to baseline. OBJECTIVE: Vital Signs Period Temp Pulse Resp BP Sys/Ibanez Pulse Ox Last 24 Hr 97.6 F-98.4 F 87-110 11-28 123-165/61-83 92-100 Intake & Output 06/03/20 06/04/20 06/05/20 06/06/20 23:59 23:59 23:59 23:59 Output Total 250 800 Balance -250 -800 Weight 128.82 kg Gen: NAD at rest Neck: no stridor Heart: RRR Lung: decreased breath sounds at the bases Abd: soft, nontender Ext: no edema CBC, BMP 06/06/20 06:00 06/06/20 06:00 Active Medications Amlodipine Besylate (Norvasc -) 10 mg PO DAILY [facility] Last Admin: 06/06/20 09:13 Dose: 10 mg Documented by: Aspirin (Asa -) 81 mg PO DAILY [facility] Last Admin: 06/06/20 09:13 Dose: 81 mg Documented by: Atorvastatin Calcium (Lipitor -) 40 mg PO [facility] Last Admin: 06/05/20 21:33 Dose: 40 mg Documented by: Carvedilol (Coreg -) 12.5 mg PO BID [facility] Last Admin: 06/06/20 09:13 Dose: 12.5 mg Documented by: Chlorhexidine Gluconate (Hibiclens For Decolonization -) 1 applic TP [facility] Last Admin: 06/05/20 21:33 Dose: 1 applic Documented by: Dexamethasone Sodium Phosphate (Decadron Injection -) 10 mg IVPUSH Q6H-IV [facility] Last Admin: 06/06/20 09:12 Dose: 10 mg Documented by: Diphenhydramine HCl (Benadryl Injection -) 25 mg IVPUSH Q6H-IV [facility] Last Admin: 06/06/20 09:12 Dose: 25 mg Documented by: Enoxaparin Sodium (Lovenox -) 40 mg SQ DAILY [facility] Last Admin: 06/06/20 09:13 Dose: 40 mg Documented by: Ergocalciferol (Drisdol -) 50,000 unit PO Q30D [facility] Last Admin: 06/06/20 09:13 Dose: 50,000 unit Documented by: Insulin Aspart (Novolog Vial Sliding Scale -) 1 vial SQ ACHS [facility]; Protocol Last Admin: 06/06/20 11:49 Dose: 6 units Documented by: Mupirocin (Bactroban Ointment (For Decolonization) -) 1 applic NS BID [facility] Stop: 06/10/20 12:29 Last Admin: 06/06/20 09:13 Dose: 1 applic Documented by: Non-Formulary Medication (Regorafenib [Stivarga]) 40 mg PO DAILY [facility] Pantoprazole Sodium (Protonix -) 40 mg PO DAILY [facility] Last Admin: 06/06/20 09:13 Dose: 40 mg Documented by: Pregabalin (Lyrica -) 200 mg PO BID [facility] Last Admin: 06/06/20 09:13 Dose: 200 mg Documented by: Senna (Senna -) 1 tab PO DAILY PRN PRN Reason: CONSTIPATION ASSESSMENT AND PLAN: Angioedema likely from JAMILA-I CAD Metastatic Colon Ca PAD HTN DM Hyperlipidemia - can d/c steroids - antihistamines - PO as tolerated - O2 to keep SpO2 >90% - can d/c home
== END 2020-06-06 14:58 | disposition home or self-care (01) | DRG 916 ==
LOC: JER 07:51 → JERBED 08:40 → JICU 12:00
PROVIDERS: ADMIT Internal Medicine; ATTEND Internal Medicine
DX: T78.3XXA Angioneurotic edema, initial encounter (principal); Z68.41 Body mass index [BMI] 40.0-44.9, adult; T46.4X5A Adverse effect of angiotensin-converting-enzyme inhibitors, initial encounter; I10 Essential (primary) hypertension; E78.5 Hyperlipidemia, unspecified; E66.9 Obesity, unspecified; Z85.038 Personal history of other malignant neoplasm of large intestine; I25.10 Atherosclerotic heart disease of native coronary artery without angina pectoris; E11.51 Type 2 diabetes mellitus with diabetic peripheral angiopathy without gangrene
CPT/HCPCS: 36415; 71045-TC-FY; 80053; 82550; 82962; 83036; 83735; 83880; 84100; 84439; 84443; 84484; 85025; 85610; 85730; 93005; 93010; 99291; J1100; U0003